=== PATIENT | female | born 1955 | race Caucasian/White ===

== ENCOUNTER 2016-06-04 12:55 | Emergency (ER) | payer BC, OTHER ==
[~2016-06-04 12:55] MED LIST: ADULT ASPIRIN81 MG; ASPERDRINK81 MG PO; ASPIRIN325 MG; CALCIUM 600 W/V1 TAB; CILOXAN5 ML RIGHT EYE; COREG6.25 MG PO; CRESTOR10 MG; CRESTOR10 MG PO; FISH OIL 1,2001 CAP PO; LEXAPRO10 MG PO; LOW DOSE ASPIRI81 MG; MULTI VITAMIN1 EACH PO; MULTIVITAMIN1 TAB; NITROGLYCERIN0.4 MG SL; NORVASC5 MG; NORVASC5 MG PO; OMEGA-31000 MG; OMEPRAZOLE20 M2 PO; OMEPRAZOLE20 MG; PLAVIX75 MG; TOPROL XL25 MG; [UNRECOGNIZED DRUG - OTHER]
[2016-06-04] MEDS ORDERED: NORVASC5 M2 PO (13:47)
[2016-06-04] MEDS ORDERED: ASPIR-LOW81 M1 PO (13:47)
[2016-06-04] MEDS ORDERED: CRESTOR10 M1 PO (13:47)
[2016-06-04] MEDS ORDERED: CLARITIN10 M6 PO (13:47)
[2016-06-04] MEDS ORDERED: COREG6.25 M1 PO (13:48)
[2016-06-04] MEDS ORDERED: METFORMIN HCL500 M2 PO (13:48)
[2016-06-04] MEDS ORDERED: LEXAPRO10 M2 PO (13:48)
[2016-06-04] MEDS ORDERED: OMEPRAZOLE20 M3 PO (13:48)
[2016-06-04] MEDS ORDERED: CYCLOBENZAPRINE10 M1 PO (15:38)
[2016-06-04] MEDS ORDERED: NORCO 5-325 TA1 EACH PO (15:38)
== END 2016-06-04 16:00 ==
LOC: EDMED 12:55
DX: S16.1XXA Strain of muscle, fascia and tendon at neck level, initial encounter (principal); V49.40XA Driver injured in collision with unspecified motor vehicles in traffic accident, initial encounter; Y92.410 Unspecified street and highway as the place of occurrence of the external cause; R51 Headache
CPT/HCPCS: J2360